=== PATIENT | male | born 1975 | race Caucasian/White ===

== ENCOUNTER 2018-07-14 17:59 | Emergency (ER) | payer OTHER ==
[~2018-07-14] VITALS: Ht 182.9 cm; Wt 87.4 kg
[~2018-07-14 17:59] MED LIST: BUPR1SUB23 SL; LEVO50TA PO; PARO25TA2 PO; ZOLP5TAB6 PO
[2018-07-14 18:01] VITALS: TEMP 36.9; Ht 182.9 cm; Wt 87.4 kg
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
[2018-07-14] MEDS ORDERED: SULFAMETHOXAZOLE/TRIMETHOPRIM DS 800/160MG TAB PO ONE (18:30)
[2018-07-14] MEDS ORDERED: LIDOCAINE HCL 1% 20 ML VIAL ONE (18:34)
[2018-07-14] MEDS ORDERED: LIDOCAINE/EPINEPHRINE 1% 20 ML VIAL ONE (18:34)
[2018-07-14] MEDS ORDERED: CEPHALEXIN MONOHYDRATE 250 MG CAP PO ONE (19:15)
[2018-07-14] MEDS ORDERED: SULF800T23 PO (19:18)
[2018-07-14] MEDS ORDERED: CEPH500C PO (19:18)
[2018-07-14 19:32] VITALS: BP 151/71; PULSE 92; O2SAT 98
[2018-07-14 22:32] LABS: HEP C IGG 13 YRS+OLDER_RFLX PRELIM POS (NEG)
--- NOTE | 2018-07-16 19:45 | Pharmacy Progress Note ---
ED Pharmacist Culture FollowUp Date of Service: Jul 16, 2018. Patient with 3 different cultures from various subcutaneous abscess s/p I&D in ED. Patient sent with prescriptions for cephalexin, Bactrim. Two cultures have finalized with Streptococcus intermedius, which should be sensitive to cephalexin. One culture is still preliminary, but has Streptococcus intermedius, Streptococcus species (sensitivity to follow), and Staph aureus (sensitivity to follow). Current antibiotic regimen appropriate for now, pending finalized culture results. Case discussed w Dr. Kuhn.
--- NOTE | 2018-07-17 14:15 | Pharmacy Progress Note ---
ED Pharmacist Culture FollowUp Date of Service: Jul 17, 2018. Patient's abscess cultures finalized, strept intermedius, beta hemolytic strep group F and MSSA, all should be covered by keflex. Discussed with Dr. Dai who authorized discontinuation of bactrim and continuation of keflex. Called patient ~ 1400 and left message.
== END 2018-07-14 20:14 | disposition home or self-care (01) ==
LOC: C.EDB 18:00 → C.EDA 20:14
DX: L02.214 Cutaneous abscess of groin (principal); L02.416 Cutaneous abscess of left lower limb; L02.415 Cutaneous abscess of right lower limb; I10 Essential (primary) hypertension; F17.200 Nicotine dependence, unspecified, uncomplicated; Z79.899 Other long term (current) drug therapy